=== PATIENT | female | born 1955 | race Caucasian/White ===

== ENCOUNTER 2017-11-23 14:51 | Inpatient (IN) | payer BC ==
[~2017-11-23] VITALS: Ht 165.1 cm; Wt 86.2 kg
[2017-11-23] MEDS ORDERED: ZOLP10TA2 PO (15:03)
[2017-11-23] MEDS ORDERED: CLON2TAB4 PO (15:03)
[2017-11-23] MEDS ORDERED: HYDR25TA4 PO (15:03)
[2017-11-23] MEDS ORDERED: PROM25TA15 PO (15:03)
[2017-11-23] MEDS ORDERED: IV NORMAL SALINE 1000 ML BAG IV ONE (15:45)
[2017-11-23] MEDS ORDERED: ONDANSETRON 4 MG/2 ML VIAL IV ONE ×2 (15:45→18:00)
[2017-11-23] MEDS ORDERED: PANTOPRAZOLE SODIUM IV 80 MG in IV DEXTROSE 5% 100 ML IV ONE (15:45)
[2017-11-23] MEDS ORDERED: PANTOPRAZOLE SODIUM 40 MG VIAL ONE (16:00)
[2017-11-23] MEDS ORDERED: ONDANSETRON 4 MG/2 ML VIAL ONE ×2 (16:00→18:04)
[2017-11-23 16:16] LABS: BASOPHILS # (AUTO) 0.1 K/uL (0.0-8.0); BASOPHILS % (AUTO) 0.7 % (0.0-2.0); EOSINOPHILS # (AUTO) 0.4 K/uL (0.0-0.7); EOSINOPHILS % (AUTO) 3.4 % (0.0-7.0); HEMATOCRIT 40.6 % (31.2-41.9); HEMOGLOBIN 13.5 g/dL (10.9-14.3); LYMPHOCYTES # (AUTO) 3.6 K/uL (20.0-40.0); LYMPHOCYTES % (AUTO) 30.5 % (20.5-51.5); MEAN CORPUSCULAR HEMOGLOBIN 28.2 uug (24.7-32.8); MEAN CORPUSCULAR HGB CONC 33 g/dL (32.3-35.6); MEAN CORPUSCULAR VOLUME 84.9 fL (75.5-95.3); MONOCYTES # (AUTO) 0.7 K/uL (2.0-10.0); MONOCYTES % (AUTO) 5.6 % (0.0-11.0); NEUTROPHILS # (AUTO) 7.1 K/uL (1.8-8.9); NEUTROPHILS % (AUTO) 59.8 % (38.5-71.5); PLATELET COUNT (AUTO) 459 K/uL (179-408); RED BLOOD CELL COUNT(AUTO) 4.78 MIL/uL (3.63-4.92); WHITE BLOOD COUNT (AUTO) 11.9 K/uL (3.8-11.8)
[2017-11-23 16:34] LABS: BILIRUBIN,DIRECT 0.1 mg/dL (0.0-0.2); BILIRUBIN,TOTAL 0.3 mg/dL (0.2-1.0); TOTAL PROTEIN, SERUM 7.6 g/dL (6.4-8.2)
[2017-11-23 16:37] LABS: POTASSIUM 2.8 mmol/L (3.5-5.1)
[2017-11-23] MEDS ORDERED: POTASSIUM CHLORIDE 50 ML ONE (16:42)
[2017-11-23] MEDS: POTASSIUM CHLORIDE 50 ML IV SCH (16:45)
[2017-11-23 17:50] LABS: *BILIRUBIN,URIN NEGATIVE (NEGATIVE); *BLOOD, URINE NEGATIVE (NEGATIVE); *CLARITY,URINE SLIGHTLY CLOUDY (CLEAR); *COLOR,URINE YELLOW (YELLOW); *KETONES,URINE NEGATIVE (NEGATIVE); *PROTEIN,URINE TRACE (NEGATIVE); *UROBILINOGEN,URINE 0.2 E.U./dl (NORMAL); LEUKOCYTE ESTERASE ,URINE NEGATIVE (NEGATIVE); NITRITE, URINE NEGATIVE (NEGATIVE); UGLUCOSE NEGATIVE (NEGATIVE)
[2017-11-23 17:58] LABS: RBC,URINE 0-3 /HPF (0-3)
[2017-11-23 17:59] LABS: BACTERIA,URINE NONE SEEN /HPF (NONE SEEN); CALCIUM OXALATE CRYSTALS,UR FEW /HPF (NONE SEEN); SQUAMOUS EPITHELIAL CELL,UR MODERATE /HPF (NONE SEEN)
[2017-11-23] MEDS ORDERED: MORPHINE SULFATE 4 MG/1 ML DISP.SYRIN IV ONE (18:00)
[2017-11-23] MEDS ORDERED: MORPHINE SULFATE 4 MG/1 ML DISP.SYRIN ONE ×2 (18:03→20:32)
[2017-11-23 18:21] LABS: *OCCULT BLOOD STOOL NEGATIVE (NEGATIVE)
[2017-11-23] MEDS ORDERED: ACETAMINOPHEN 650 MG SUPP.RECT RC PRN (19:45)
[2017-11-23] MEDS ORDERED: MORPHINE SULFATE 2 MG/1 ML DISP.SYRIN IV PRN (19:45)
[2017-11-23 20:00] VITALS: BP 121/73
[2017-11-23] MEDS: ONDANSETRON 4 MG/2 ML VIAL IV PRN (20:10)
[2017-11-23] MEDS: PANTOPRAZOLE SODIUM 40 MG VIAL IV SCH (20:22)
[2017-11-23 20:25] LABS: HEMATOCRIT 38.5 % (31.2-41.9); HEMOGLOBIN 12.7 g/dL (10.9-14.3)
[2017-11-23] MEDS: POTASSIUM CHLORIDE 20 MEQ in IV D5 1/2 NS 1000 ML 1,000 ML IV PRN (21:27)
[2017-11-23] MEDS: LORAZEPAM 2 MG/1 ML VIAL IV PRN (21:44)
[2017-11-24] VITALS: BP 92/60
[2017-11-24] MEDS: ONDANSETRON 4 MG/2 ML VIAL IV PRN ×4 (01:12→20:55)
[2017-11-24] MEDS ORDERED: MORPHINE SULFATE 4 MG/1 ML DISP.SYRIN ONE (01:27)
[2017-11-24 04:00] VITALS: BP 106/61
[2017-11-24 06:55] LABS: BASOPHILS # (AUTO) 0.1 K/uL (0.0-8.0); BASOPHILS % (AUTO) 0.7 % (0.0-2.0); EOSINOPHILS # (AUTO) 0.3 K/uL (0.0-0.7); EOSINOPHILS % (AUTO) 3.6 % (0.0-7.0); HEMATOCRIT 36.2 % (31.2-41.9); HEMOGLOBIN 12.3 g/dL (10.9-14.3); LYMPHOCYTES # (AUTO) 3.5 K/uL (20.0-40.0); LYMPHOCYTES % (AUTO) 36.7 % (20.5-51.5); MEAN CORPUSCULAR HEMOGLOBIN 28.9 uug (24.7-32.8); MEAN CORPUSCULAR HGB CONC 34 g/dL (32.3-35.6); MEAN CORPUSCULAR VOLUME 85.2 fL (75.5-95.3); MONOCYTES # (AUTO) 0.6 K/uL (2.0-10.0); NEUTROPHILS # (AUTO) 5.1 K/uL (1.8-8.9); PLATELET COUNT (AUTO) 363 K/uL (179-408); RED BLOOD CELL COUNT(AUTO) 4.25 MIL/uL (3.63-4.92); WHITE BLOOD COUNT (AUTO) 9.6 K/uL (3.8-11.8)
[2017-11-24] MEDS ORDERED: MORPHINE SULFATE 4 MG/1 ML DISP.SYRIN IV PRN (07:09)
[2017-11-24 07:17] LABS: CREATININE 0.8 mg/dL (0.6-1.3); MAGNESIUM 1.8 mg/dL (1.8-2.4); PHOSPHOROUS 2.9 mg/dL (2.5-4.9); POTASSIUM 3.2 mmol/L (3.5-5.1)
[2017-11-24 07:21] LABS: THYROID STIMULATING HORMONE 4.818 mIU/mL (0.358-3.740)
[2017-11-24 07:54] VITALS: BP 109/59
[2017-11-24] MEDS: PANTOPRAZOLE SODIUM 40 MG VIAL IV SCH ×2 (08:13→20:54)
[2017-11-24] MEDS: LORAZEPAM 2 MG/1 ML VIAL IV PRN (10:22)
[2017-11-24] MEDS: POTASSIUM CHLORIDE 50 ML IV SCH ×2 (11:20→12:53)
[2017-11-24] MEDS: POTASSIUM CHLORIDE 20 MEQ in IV D5 1/2 NS 1000 ML 1,000 ML IV PRN (11:39)
[2017-11-24 11:46] VITALS: BP 97/89
[2017-11-24 16:25] VITALS: BP 96/57
[2017-11-24] MEDS: HYDROMORPHONE 2 MG/1 ML DISP.SYRIN IV PRN ×2 (16:26→20:55)
[2017-11-24 20:11] VITALS: BP 121/78
[2017-11-25] VITALS: BP 115/78
[2017-11-25] MEDS: LORAZEPAM 2 MG/1 ML VIAL IV PRN ×4 (01:14→20:44)
[2017-11-25] MEDS: HYDROMORPHONE 2 MG/1 ML DISP.SYRIN IV PRN ×5 (01:54→22:09)
[2017-11-25] MEDS: ONDANSETRON 4 MG/2 ML VIAL IV PRN ×6 (01:54→18:04)
[2017-11-25 04:00] VITALS: BP 128/73
[2017-11-25] MEDS: POTASSIUM CHLORIDE 20 MEQ in IV D5 1/2 NS 1000 ML 1,000 ML IV PRN (04:39)
[2017-11-25 06:15] LABS: BASOPHILS # (AUTO) 0.1 K/uL (0.0-8.0); BASOPHILS % (AUTO) 0.5 % (0.0-2.0); EOSINOPHILS # (AUTO) 0.3 K/uL (0.0-0.7); EOSINOPHILS % (AUTO) 3.1 % (0.0-7.0); HEMATOCRIT 35.6 % (31.2-41.9); HEMOGLOBIN 11.9 g/dL (10.9-14.3); LYMPHOCYTES # (AUTO) 3.4 K/uL (20.0-40.0); LYMPHOCYTES % (AUTO) 36.4 % (20.5-51.5); MEAN CORPUSCULAR HGB CONC 33 g/dL (32.3-35.6); MEAN CORPUSCULAR VOLUME 86.8 fL (75.5-95.3); MONOCYTES # (AUTO) 0.5 K/uL (2.0-10.0); MONOCYTES % (AUTO) 4.9 % (0.0-11.0); NEUTROPHILS # (AUTO) 5.2 K/uL (1.8-8.9); NEUTROPHILS % (AUTO) 55.1 % (38.5-71.5); PLATELET COUNT (AUTO) 351 K/uL (179-408); WHITE BLOOD COUNT (AUTO) 9.4 K/uL (3.8-11.8)
[2017-11-25 06:26] LABS: BILIRUBIN,TOTAL 0.2 mg/dL (0.2-1.0); CREATININE 0.7 mg/dL (0.6-1.3); MAGNESIUM 1.7 mg/dL (1.8-2.4); PHOSPHOROUS 2.9 mg/dL (2.5-4.9); POTASSIUM 3.8 mmol/L (3.5-5.1); TOTAL PROTEIN, SERUM 5.9 g/dL (6.4-8.2)
[2017-11-25 06:33] LABS: THYROID STIMULATING HORMONE 6.396 mIU/mL (0.358-3.740)
[2017-11-25] MEDS: PANTOPRAZOLE SODIUM 40 MG VIAL IV SCH ×2 (08:33→20:44)
[2017-11-25] MEDS ORDERED: MAGNESIUM SULFATE/D5W 100 ML IV SCH (10:15)
[2017-11-25 11:28] VITALS: BP 118/67
[2017-11-25] MEDS ORDERED: PROPOFOL 200 MG/20 ML BOTTLE IV ONE (12:59)
[2017-11-25] MEDS ORDERED: MAGNESIUM HYDROXIDE 30 ML LIQUID UDC PO PRN (15:30)
[2017-11-25 15:56] VITALS: BP 109/70
[2017-11-25] MEDS: DOCUSATE SODIUM 100 MG CAPSULE PO SCH ×2 (16:19→20:44)
[2017-11-25 20:32] VITALS: BP 129/71
[2017-11-25] MEDS ORDERED: ATORVASTATIN 10 MG TABLET PO SCH (21:00)
[2017-11-26] MEDS: HYDROMORPHONE 2 MG/1 ML DISP.SYRIN IV PRN ×2 (02:09→08:52)
[2017-11-26] MEDS: POTASSIUM CHLORIDE 20 MEQ in IV D5 1/2 NS 1000 ML 1,000 ML IV PRN (02:14)
[2017-11-26 05:34] VITALS: BP 125/73
[2017-11-26 08:26] LABS: BASOPHILS # (AUTO) 0.1 K/uL (0.0-8.0); BASOPHILS % (AUTO) 0.7 % (0.0-2.0); EOSINOPHILS # (AUTO) 0.3 K/uL (0.0-0.7); EOSINOPHILS % (AUTO) 3.4 % (0.0-7.0); HEMATOCRIT 37.3 % (31.2-41.9); HEMOGLOBIN 12.3 g/dL (10.9-14.3); LYMPHOCYTES % (AUTO) 31.3 % (20.5-51.5); MEAN CORPUSCULAR HEMOGLOBIN 28.5 uug (24.7-32.8); MEAN CORPUSCULAR HGB CONC 33 g/dL (32.3-35.6); MEAN CORPUSCULAR VOLUME 86.2 fL (75.5-95.3); MONOCYTES # (AUTO) 0.6 K/uL (2.0-10.0); NEUTROPHILS # (AUTO) 5.6 K/uL (1.8-8.9); NEUTROPHILS % (AUTO) 58.6 % (38.5-71.5); PLATELET COUNT (AUTO) 358 K/uL (179-408); RED BLOOD CELL COUNT(AUTO) 4.32 MIL/uL (3.63-4.92); WHITE BLOOD COUNT (AUTO) 9.6 K/uL (3.8-11.8)
[2017-11-26] MEDS: PANTOPRAZOLE SODIUM 40 MG VIAL IV SCH (08:50)
[2017-11-26] MEDS: ONDANSETRON 4 MG/2 ML VIAL IV PRN (08:51)
[2017-11-26] MEDS: DOCUSATE SODIUM 100 MG CAPSULE PO SCH (08:51)
[2017-11-26 08:54] LABS: BILIRUBIN,TOTAL 0.2 mg/dL (0.2-1.0); CREATININE 0.7 mg/dL (0.6-1.3); MAGNESIUM 1.9 mg/dL (1.8-2.4); POTASSIUM 4.1 mmol/L (3.5-5.1); TOTAL PROTEIN, SERUM 6.4 g/dL (6.4-8.2)
[2017-11-26] MEDS: LORAZEPAM 2 MG/1 ML VIAL IV PRN (08:57)
[2017-11-26 11:50] VITALS: BP 104/59
== END 2017-11-26 13:00 | disposition home or self-care (01) | DRG 378 ==
LOC: ER 14:53 → TELE 18:02 → MED 11-25 12:25
PROVIDERS: ADMIT Internal Medicine; ATTEND Nurse Practitioner Acute Care
PROC: 0DB68ZX Excision of Stomach, Via Natural or Artificial Opening Endoscopic, Diagnostic (ICD-10-PCS; principal; 2017-11-25 12:25)
DX: K29.71 Gastritis, unspecified, with bleeding (principal); E44.0 Moderate protein-calorie malnutrition; K44.9 Diaphragmatic hernia without obstruction or gangrene; E86.0 Dehydration; E87.6 Hypokalemia; E83.42 Hypomagnesemia; E66.9 Obesity, unspecified; Z68.31 Body mass index [BMI] 31.0-31.9, adult; K21.9 Gastro-esophageal reflux disease without esophagitis; Z82.49 Family history of ischemic heart disease and other diseases of the circulatory system; Z80.52 Family history of malignant neoplasm of bladder; Z96.612 Presence of left artificial shoulder joint; Z90.710 Acquired absence of both cervix and uterus; Z87.891 Personal history of nicotine dependence; F43.21 Adjustment disorder with depressed mood; Z90.49 Acquired absence of other specified parts of digestive tract; Z88.0 Allergy status to penicillin; S80.02XA Contusion of left knee, initial encounter; W19.XXXA Unspecified fall, initial encounter; Y92.89 Other specified places as the place of occurrence of the external cause; E78.5 Hyperlipidemia, unspecified; I72.8 Aneurysm of other specified arteries; K42.9 Umbilical hernia without obstruction or gangrene; Z87.828 Personal history of other (healed) physical injury and trauma; I49.9 Cardiac arrhythmia, unspecified; I10 Essential (primary) hypertension; Z87.11 Personal history of peptic ulcer disease; F41.9 Anxiety disorder, unspecified
CPT/HCPCS: 36415; 70030-TC; 70450; 71045; 73560; 83550; 83690; 83735; 84100; 84443; 84481; 85018; 85025; 85730; 86140; 86850; 86900; 86901; 87086; 88342; 93005; 93307; A4217; A4663; C9113; J1170; J2060; J2270; J2405; J3475; J3480; J3490; J7030; J7050